=== PATIENT | female | born 2000 | race Caucasian/White ===

== ENCOUNTER 2020-11-26 20:02 | Emergency (ER) | payer SELFPAY ==
[~2020-11-26] VITALS: Ht 160 cm; Wt 112.3 kg
[2020-11-26 20:08] VITALS: TEMP 97.8
[2020-11-26] MEDS ORDERED: MEDROL 4MG DOSPA4 MG PO (21:03)
[2020-11-26 21:12] VITALS: BP 110/71; PULSE 98
== END 2020-11-26 21:14 | disposition home or self-care (01) ==
LOC: COL.ER 20:02
DX: M54.42 Lumbago with sciatica, left side (principal); F17.210 Nicotine dependence, cigarettes, uncomplicated
CPT/HCPCS: J1885; J2360